=== PATIENT | female | born 1995 | race American Indian/Alaskan Native ===

== ENCOUNTER 2021-07-22 05:52 | Inpatient (IN) | payer MEDICAID ==
[2021-07-22] MEDS ORDERED: LACTATED RINGERS 1,000 ML ONE (07:34)
[2021-07-22] MEDS ORDERED: CARBOPROST TROMETHAMINE 250 MCG/1 ML INJ IM PRN (07:37)
[2021-07-22] MEDS ORDERED: LIDOCAINE (2%) 20 MG/1 ML VIAL 20 ML MDV INFILTRATI NR (07:37)
[2021-07-22] MEDS ORDERED: miSOPROStol 200 MCG TAB PR PRN (07:37)
[2021-07-22] MEDS ORDERED: LOPERAMIDE 2 MG CAP PO PRN (07:37)
[2021-07-22] MEDS ORDERED: MINERAL OIL 30 ML ORAL LIQD PO PRN (07:37)
[2021-07-22] MEDS ORDERED: OXYTOCIN 10 UNIT/1 ML INJ IM PRN (07:37)
[2021-07-22] MEDS ORDERED: NalbUPHINE 10 MG/1 ML INJ IV PRN (08:00)
[2021-07-22] MEDS ORDERED: TERBUTALINE 1 MG/1 ML INJ SUB-Q PRN (08:00)
[2021-07-22] MEDS ORDERED: BUTORPHANOL 2 MG/1 ML INJ IV PRN (08:00)
[2021-07-22] MEDS ORDERED: OXYTOCIN DRIP 30 UNITS/500 ML BAG IV SCH ×2 (08:00)
[2021-07-22] MEDS ORDERED: ACETAMINOPHEN 325 MG TAB PO PRN (08:00)
[2021-07-22] MEDS ORDERED: ePHEDrine SULFATE 50 MG/1 ML INJ IV PRN ×2 (08:00→10:30)
[2021-07-22] MEDS ORDERED: fentaNYL 100 MCG/2 ML INJ IV PRN (08:00)
[2021-07-22] MEDS ORDERED: LACTATED RINGERS 1,000 ML IV SCH (08:00)
[2021-07-22] MEDS ORDERED: METHYLERGONOVINE MALEATE 0.2 MG/ML VIAL IM PRN (08:00)
--- NOTE | 2021-07-22 08:03 | History and Physical Report ---
History of Present Illness Date of examination: 07/22/21 Date of admission: 07/22/21 05:53 Chief complaint: Contractions History of present illness: 26-year-old primigravida at 38-5/7 weeks gestation presents to OB triage reporting regular and painful uterine contractions every 5 to 6 minutes. There is no vaginal bleeding. There is good movement. There is no leakage of fluid. Cervical exam was noted to be 4 cm dilated. As such, this patient is admitted to labor and delivery in active labor. Past History Past Medical History: asthma Past Surgical History: no surgical history EVIDENCE CUSTODIAN History: chlamydia, herpes Family/Genetic History: other (Alpha thalassemia trait) Social history: no significant social history - Obstetrical History Expected Date of Delivery: 07/31/21 Actual Gestation: 38 Week(s) 6 Day(s) : 1 Para: 0 Medications and Allergies Allergies Allergy/AdvReac Type Severity Reaction Status Date / Time No Known Allergies Allergy Unverified 07/22/21 07:32 Active Meds: Active Medications Acetaminophen (Acetaminophen 325 Mg Tab) 650 mg PO Q4H PRN PRN Reason: Pain, Mild (1-3) Butorphanol Tartrate (Butorphanol 2 Mg/1 Ml Inj) 2 mg IV Q2H PRN PRN Reason: Pain , Severe (7-10) Carboprost Tromethamine (Carboprost Tromethamine 250 Mcg/1 Ml Inj) 250 mcg IM ONCE PRN PRN Reason: Uterine Bleeding Ephedrine Sulfate (Ephedrine Sulfate 50 Mg/1 Ml Inj) 10 mg IV Q2M PRN PRN Reason: Hypotension Fentanyl (Fentanyl 100 Mcg/2 Ml Inj) 100 mcg IV Q2H PRN PRN Reason: Pain,Severe (7-10) LABOR PAIN Oxytocin/Sodium Chloride (Pitocin/Ns 30 Unit/500ml) 30 units in 500 mls @ 2 mls/hr IV TITR EVANGELIST; Protocol Lactated Ringer's (Lactated Ringers) 1,000 mls @ 125 mls/hr IV DIRECT [facility]ANGELIST Oxytocin/Sodium Chloride (Pitocin/Ns 30 Unit/500ml) 30 units in 500 mls @ 40 mls/hr IV TITR EVANGELIST; Protocol Lidocaine (Lidocaine (2%) 20 Mg/1 Ml Vial 20 Ml Mdv) 20 ml INFILTRATI ONCE ONE Stop: 07/22/21 07:38 Methylergonovine Maleate (Methylergonovine Maleate 0.2 Mg/Ml Vial) 0.2 mg IM ONCE PRN PRN Reason: Uterine Bleeding Nalbuphine HCl (Nalbuphine 10 Mg/1 Ml Inj) 10 mg IV Q2H PRN PRN Reason: Pain, Moderate (4-6) Terbutaline Sulfate (Terbutaline 1 Mg/1 Ml Inj) 0.25 mg SUB-Q ONCE PRN PRN Reason: Hyperstimulation/Hypertonicity Review of Systems All systems: negative - Vital Signs Vital signs: Vital Signs Pulse Pulse Ox 86 99 07/22/21 06:04 07/22/21 06:04 Temp Pulse Resp BP Pulse Ox 97.4 F L 84 123/75 97 07/22/21 06:18 07/22/21 07:59 07/22/21 06:19 07/22/21 07:59 - Physical Exam Breasts: Positive: normal Cardiovascular: Regular rate Abdomen: Positive: normal appearance Genitourinary (Female): Positive: normal external genitalia, normal perenium Vulva: both: normal Vagina: Positive: normal moisture Uterus: Positive: enlarged Adnexa: both: normal Anus/Rectum: Positive: normal perianal skin Extremities: Positive: normal Deep Tendon Reflex Grade: Normal +2 - Obstetrical FHR: category 1 Uterine Contraction Monitor Mode: External Cervical Dilatation: 4 Cervical Effacement Percentage: 80 station: -1 Uterine Contraction Frequency (min): 6 Uterine Contraction Pattern: Regular Results Result Diagrams: 07/23/21 00:19 All other labs normal. Ultrasound: report reviewed (OB US Limited= SLIUP. Vertex. EFW= 2712 g (5th %- ile). WILDER= 9.3 cm), image reviewed Assessment and Plan - Patient Problems (1) 39 weeks gestation of Current Visit: Yes Status: Acute Plan to address problem: care is up-to-date. GBS is negative. (2) Active labor at term Current Visit: Yes Status: Acute Plan to address problem: The patient is admitted to labor and delivery in active labor. Expectant management for now. (3) Genital herpes affecting in third trimester Current Visit: Yes Status: Acute Plan to address problem: The patient was on Valtrex for suppression. There are no active lesions. (4) Asthma affecting in third trimester Current Visit: Yes Status: Acute Plan to address problem: The patient has mild intermittent asthma. No Hemabate. Albuterol as needed.
--- NOTE | 2021-07-22 09:11 | Ultrasound Report ---
ULTRASOUND BIOPHYSICAL PROFILE INDICATION: well being. COMPARISON: None available. FINDINGS: heart rate is 144 beats per minute. breathing movement = 0 Gross body movement = 2 tone = 0 Qualitative amniotic fluid volume = 2 IMPRESSION: biophysical profile = 06/05 Signer Name: Rick West Jr, MD Signed: 07/22/2021 9:07 AM Workstation Name: [id number]
[2021-07-22 09:24] LABS: Hematocrit 27.9 % (30.3-42.9); Hemoglobin 9.4 gm/dl (10.1-14.3); Mean Corpuscular HGB Conc 34 % (30-34); Mean Corpuscular Volume 77 fl (79-97); Platelet Count 275 K/mm3 (140-440); Red Blood Count 3.62 M/mm3 (3.65-5.03); Red Cell Distribution Width 15.9 % (13.2-15.2)
--- NOTE | 2021-07-22 09:27 | Ultrasound Report ---
US OB follow up INDICATION: wilder efw. TECHNIQUE: Transabdominal. COMPARISON: None available. FINDINGS/IMPRESSION: There is a single intrauterine . Heart Rate: 142 beats per minute. Position: cephalic. Amniotic Fluid Volume: normal Amniotic Fluid Index (WILDER) in cm (if calculated): 9.3. weight is 2712 grams US gestation age is 35 weeks and 1 day and clinical age is 39 weeks and 0 days. Signer Name: Missael Salvador MD Signed: 07/22/2021 9:22 AM Workstation Name: [id number]
--- NOTE | 2021-07-22 10:15 | Progress Note ---
Assessment and Plan A: IUP @ 39 Weeks Category II Tracing Active Labor Poor Pain Control GBS Negative P: AROM Prepare for Epidural Anesthesia Subjective - Subjective Date of service: 07/22/21 Patient reports: vaginal bleeding, movement normal, contractions, other (nausea) Objective - Vital Signs Vital Signs: Vital Signs - 12hr 07/22/21 07/22/21 07/22/21 06:04 06:09 06:14 Temperature Pulse Rate 86 88 77 Blood Pressure O2 Sat by Pulse 99 99 98 Oximetry 07/22/21 07/22/21 07/22/21 06:18 06:19 06:24 Temperature 97.4 F L Pulse Rate 86 88 Blood Pressure 123/75 O2 Sat by Pulse 97 97 Oximetry 07/22/21 07/22/21 07/22/21 06:29 06:34 06:39 Temperature Pulse Rate 89 90 89 Blood Pressure O2 Sat by Pulse 97 97 97 Oximetry 07/22/21 07/22/21 07/22/21 06:44 06:49 06:54 Temperature Pulse Rate 91 H 104 H 84 Blood Pressure O2 Sat by Pulse 97 97 98 Oximetry 07/22/21 07/22/21 07/22/21 06:59 07:04 07:09 Temperature Pulse Rate 88 100 H 87 Blood Pressure O2 Sat by Pulse 97 97 98 Oximetry 07/22/21 07/22/21 07/22/21 07:14 07:19 07:24 Temperature Pulse Rate 91 H 88 89 Blood Pressure O2 Sat by Pulse 98 97 97 Oximetry 07/22/21 07/22/21 07/22/21 07:29 07:34 07:39 Temperature Pulse Rate 89 94 H 101 H Blood Pressure O2 Sat by Pulse 97 98 100 Oximetry 07/22/21 07/22/21 07/22/21 07:41 07:44 07:49 Temperature Pulse Rate 105 H 86 85 Blood Pressure O2 Sat by Pulse 93 99 96 Oximetry 07/22/21 07/22/21 07/22/21 07:54 07:59 08:04 Temperature Pulse Rate 81 84 85 Blood Pressure O2 Sat by Pulse 97 97 98 Oximetry 07/22/21 07/22/21 07/22/21 08:09 08:14 08:19 Temperature Pulse Rate 85 92 H 73 Blood Pressure O2 Sat by Pulse 98 97 99 Oximetry 07/22/21 07/22/21 07/22/21 08:24 08:29 08:34 Temperature Pulse Rate 88 91 H 84 Blood Pressure O2 Sat by Pulse 98 98 98 Oximetry 07/22/21 07/22/21 07/22/21 08:39 08:44 08:49 Temperature Pulse Rate 93 H 82 92 H Blood Pressure O2 Sat by Pulse 96 99 98 Oximetry 07/22/21 07/22/21 07/22/21 08:54 08:59 09:23 Temperature Pulse Rate 90 85 99 H Blood Pressure O2 Sat by Pulse 99 97 98 Oximetry 07/22/21 07/22/21 07/22/21 09:28 09:33 09:38 Temperature Pulse Rate 91 H 100 H 95 H Blood Pressure O2 Sat by Pulse 99 98 98 Oximetry 07/22/21 07/22/21 07/22/21 09:39 09:43 09:45 Temperature Pulse Rate 105 H 103 H 95 H Blood Pressure O2 Sat by Pulse 93 98 93 Oximetry 07/22/21 07/22/21 07/22/21 09:52 09:57 10:02 Temperature Pulse Rate 127 H 119 H 117 H Blood Pressure O2 Sat by Pulse 97 99 96 Oximetry - Exam Breasts: normal Cardiovascular: Regular rate Lungs: Normal air movement Abdomen: Present: normal appearance, soft FHR: category 2 FHR comments: FHR: 130, moderate varability +isolated early and varabile decels Uterine Contraction Monitor Mode: External Cervical Dilatation: 7 (Small amount of clear fluid upon ARoM at 0950) Cervical Effacement Percentage: 90 station: -2 Uterine Contraction Frequency (min): 1 Uterine Contraction Pattern: Regular Uterine Tone Measurement Phase: Resting Uterine Contraction Intensity: Strong/Firm Extremities: normal - Labs Labs: Abnormal Labs 07/22/21 08:57 RBC 3.62 L Hgb 9.4 L Hct 27.9 L MCV 77 L MCH 26 L RDW 15.9 H Laboratory Results - last 24 hr 07/22/21 07/22/21 07/22/21 08:57 08:57 09:20 WBC 10.1 RBC 3.62 L Hgb 9.4 L Hct 27.9 L MCV 77 L MCH 26 L MCHC 34 RDW 15.9 H Plt Count 275 SARS-CoV-2 (PCR) Negative Blood Type A POSITIVE Antibody Screen Negative
[2021-07-22] MEDS ORDERED: MINERAL OIL 30 ML ORAL LIQD ONE (10:42)
[2021-07-22] MEDS ORDERED: NALOXONE 0.4 MG/1 ML INJ IV PRN (11:00)
[2021-07-22] MEDS ORDERED: fentaNYL-BUPIV 2 MCG/ML-0.125% 200 MCG/100 ML BAG EPIDURAL SCH (11:00)
--- NOTE | 2021-07-22 11:09 | Anesthesia Consultation ---
Anesthesia Consult and Med Hx Date of service: 07/22/21 - Airway Anesthetic Teeth Evaluation: Poor ROM Head & Neck: Adequate Mental/Hyoid Distance: Adequate Mallampati Class: Class II Intubation Access Assessment: Probably Good - Pulmonary Exam CTA: Yes - Cardiac Exam Cardiac Exam: RRR - Pre-Operative Health Status ASA Pre-Surgery Classification: ASA2 Proposed Anesthetic Plan: Epidural - Pulmonary Hx Smoking: No Hx Asthma: Yes COPD: No Hx Pneumonia: No - Cardiovascular System Hx Hypertension: No - Central Nervous System Hx Seizures: No Hx Psychiatric Problems: No - Endocrine Hx Renal Disease: No Hx End Stage Renal Disease: No Hx Hypothyroidism: No Hx Hyperthyroidism: No - Hematic Hx Anemia: No Hx Sickle Cell Disease: No - Other Systems Hx Alcohol Use: No Hx Substance Use: No
--- NOTE | 2021-07-22 11:09 | Progress Note ---
Labor Epidural - Labor Epidural Start Time: 10:10 Stop Time: 10:18 Performed by:: OMERO AMEZQUITA Procedure: Patient is requesting epidural for labor pain. H&P and labs reviewed. Procedure explained, questions answered, consent obtained. Patient placed in sitting position with monitors applied. Timeout performed immediately before start of procedure. Prep/drape in usual sterile fashion. Skin localized 3 mL 1% lidocaine at L[3]-L[4] interspace. 17-gauge Touhy epidural needle advanced to MADDI with saline at [6] cm. No blood/CSF noted via epidural needle. Epidural catheter advanced to [10] cm. Negative aspiration for blood and CSF via catheter, negative response to test dose 3 ml 1.5% lidocaine w/ Epi. Sterile dressing applied followed by tape reinforcement. Patient tolerated procedure well. No immediate complications noted.
--- NOTE | 2021-07-22 12:02 | Procedure Note ---
OB Delivery Note - Delivery Date of Delivery: 07/22/21 (1138) Surgeon: KORTNEY RAMOS Estimated blood loss: 100cc - Vaginal Delivery presentation: vertex Delivery position: OA Intrapartum events: none Delivery induction: none Delivery augmentation: rupture of membranes Delivery monitor: external FHT, external uterine Route of delivery: Delivery placenta: spontaneous Delivery cord: 3 umbilical vessels Episiotomy: none Delivery laceration: none Anesthesia: epidural Delivery comments: of a live 6'13 female over a intact perineum under epidural anesthesia with Apgars of 8 and 9 at 1138 on 07/22/2021. Infant directly to maternal abd/chest, skin to skin contact. Spontaneous delivery of placenta complete and intact with Gudino side presenting at 1144. Fundus is firm and midline located 4 below the U. Lochia is scant. Delayed cord clamping and cutting; Cord cut by the Father of the Baby. Placenta discarded. - Infant A at 1 minute: 8 at 5 minutes: 9 Infant Gender: Female (6'13)
[2021-07-22] MEDS ORDERED: diphenhydrAMINE 25 MG CAP PO PRN (12:06)
[2021-07-22] MEDS ORDERED: WITCH HAZEL/ GLYCERIN PAD TP PRN (12:06)
[2021-07-22] MEDS ORDERED: HYDROcodone/ACETAMINOPHEN 5-325 MG TAB PO PRN (12:06)
[2021-07-22] MEDS ORDERED: LANOLIN/ZINC/DIMETHICONE (LANSINOH) 7 GM TP PRN (12:06)
[2021-07-22] MEDS: IBUPROFEN 800 MG TAB PO SCH ×2 (14:50→20:14)
--- NOTE | 2021-07-22 15:05 | Post Anesthesia Evaluation ---
- Post Anesthesia Evaluation Patient Participated: Yes Airway Patent: Yes Stable Respiratory Function: Yes Nausea/Vomiting: No Temp > 96.8F: Yes Pain Manageable: Yes Adequeate Hydration: Yes Anesthesia Complications: No Block Receding Appropriately: Yes Patient on Ventilator: No
[2021-07-23 00:33] LABS: Hemoglobin 9.8 gm/dl (10.1-14.3)
[2021-07-23] MEDS: IBUPROFEN 800 MG TAB PO SCH ×3 (02:19→14:19)
[2021-07-23] MEDS ORDERED: PRENATAL VIT27-FE FUMARATE-FOLIC ACID VIT TAB PO SCH (10:00)
--- NOTE | 2021-07-23 10:43 | Progress Note ---
Assessment and Plan A: PPD1 s/p P: Continue routine care Anticipate discharge home tomorrow if continues to do well Subjective - Subjective Date of service: 07/23/21 Principal diagnosis: PPD1 Patient reports: appetite normal, voiding normally, pain well controlled, flatus, ambulating normally [place]: doing well, nursing well, bottle feeding Objective - Vital Signs Latest vital signs: Vital Signs Temp Pulse Resp BP BP Pulse Ox Pulse Ox 07/23/21 07:53 98.3 F 77 18 98/65 98 07/23/21 07:30 98 07/23/21 00:20 97.8 F 84 18 103/70 98 07/22/21 20:20 100 07/22/21 20:12 98.5 F 85 18 99/68 97 07/22/21 16:18 98.3 F 98 H 18 96/59 95 07/22/21 14:00 98.2 F 81 14 114/77 100 07/22/21 13:42 85 108/73 07/22/21 13:28 62 105/66 07/22/21 13:13 76 109/69 07/22/21 12:42 62 113/73 07/22/21 12:41 65 99 07/22/21 12:36 58 L 100 07/22/21 12:32 65 92 07/22/21 12:31 64 93 07/22/21 12:30 63 114/69 07/22/21 12:26 57 L 87 07/22/21 12:25 63 94 07/22/21 12:21 87 100 07/22/21 12:16 65 100 07/22/21 12:12 68 125/67 07/22/21 12:11 71 99 07/22/21 12:06 79 100 07/22/21 12:01 80 100 07/22/21 11:57 91 H 118/56 07/22/21 11:56 53 L 98 07/22/21 11:47 85 100 07/22/21 11:42 85 98 07/22/21 11:37 124 H 98 07/22/21 11:32 68 111/68 100 07/22/21 11:27 86 100 07/22/21 11:22 87 100 07/22/21 11:18 82 109/67 07/22/21 11:17 73 98 07/22/21 11:12 75 99 07/22/21 11:07 83 97 07/22/21 11:02 81 102/64 98 07/22/21 10:57 72 98 07/22/21 10:52 60 97 07/22/21 10:47 60 89/55 98 07/22/21 10:46 56 L 87/52 07/22/21 10:42 95 H 98 Intake and Output 07/22/21 07/23/21 07/23/21 23:59 07:59 15:59 Intake Total 480 480 120 Output Total 300 Balance 180 480 120 Intake: Oral 480 120 Intake, Free Water 480 Output: Urine 300 Void 300 Other: Total, Intake Amount 480 120 Total, Output Amount 300 # Voids Void 1 2 1 - Exam Breasts: Present: Cardiovascular: Present: Regular rate, Normal S1, Normal S2 Lungs: Present: Clear to auscultation Abdomen: Present: normal appearance, soft, tenderness Uterus: Present: firm, tenderness, fundal height below umbilicus Extremities: Present: normal - Labs Labs: Abnormal lab results 07/23/21 Range/Units 00:19 Hgb 9.8 L (10.1-14.3) gm/dl Hct 30.0 L (30.3-42.9) %
[2021-07-23 15:36] VITALS: BP 101/74
--- NOTE | 2021-07-23 18:34 | Discharge Summary ---
Providers - Providers Date of Admission: 07/22/21 05:53 Date of discharge: 07/23/21 Attending physician: GIOVANNI Ware Primary care physician: GIOVANNI COLEY Hospitalization Delivery: Episiotomy: none Laceration: none Other procedures: none complications: none Discharge diagnosis: IUP at term delivered baby: female Condition at discharge: Good Disposition: 01 HOME / SELF CARE / HOMELESS Plan - Provider Discharge Summary Activity: no sex for 6 weeks, no heavy lifting 4 weeks, no strenuous exercise Diet: routine Instructions: routine Additional instructions: [] Smoking cessation referral if applicable(refer to patient education folder for contact #) [] Refer to [facility] Booklet Call your doctor immediately for: * Fever > 100.5 * Heavy vaginal bleeding ( >1 pad per hour) * Severe persistent headache * Shortness of breath * Reddened, hot, painful area to leg or breast * Drainage or odor from incision. * Keep incision clean and dry at all times and follow doctor's instructions regarding bathing/showering - Follow up plan Follow up: GIOVANNI COLEY MD [Primary Care Provider] - 6 Weeks Forms: [facility] Discharge Summary
== END 2021-07-23 16:00 | disposition home or self-care (01) | DRG 774 ==
LOC: TRG 05:52 → APU 05:53 → TRG 07:48 → LD 09:23 → OB 13:59
PROVIDERS: ADMIT Obstetrics & Gynecology; ATTEND Obstetrics & Gynecology
PROC: 10E0XZZ Delivery of Products of Conception, External Approach (ICD-10-PCS; principal; 2021-07-22)
PROC: 10907ZC Drainage of Amniotic Fluid, Therapeutic from Products of Conception, Via Natural or Artificial Opening (ICD-10-PCS; 2021-07-22)
PROC: 3E0R3BZ Introduction of Anesthetic Agent into Spinal Canal, Percutaneous Approach (ICD-10-PCS; 2021-07-22)
PROC: 00HU33Z Insertion of Infusion Device into Spinal Canal, Percutaneous Approach (ICD-10-PCS; 2021-07-22)
DX: O76 Abnormality in fetal heart rate and rhythm complicating labor and delivery (principal); O98.32 Other infections with a predominantly sexual mode of transmission complicating childbirth; Z37.0 Single live birth; Z20.822 Contact with and (suspected) exposure to COVID-19; Z3A.39 39 weeks gestation of pregnancy; O99.52 Diseases of the respiratory system complicating childbirth; J45.20 Mild intermittent asthma, uncomplicated; A60.00 Herpesviral infection of urogenital system, unspecified
CPT/HCPCS: 36415; 59025; 76816; 76819; 85014; 85018; 85027; 86592; 86850; 86900; 86901; 96360; 99211; G0378; G0463; J7120; U0003